=== PATIENT | male | born 1955 | race Caucasian/White ===

== ENCOUNTER 2017-06-25 09:59 | Day surgery (SDC) | payer OTHER ==
[~2017-06-25] VITALS: Ht 182.9 cm; Wt 110.0 kg
[2017-06-25] MEDS ORDERED: TERA5 PO (10:42)
== END 2017-06-25 14:00 | disposition home or self-care (01) ==
LOC: ORSCSDS 09:59
PROVIDERS: Orthopaedic Surgery
PROC: 0SBC4ZZ Excision of Right Knee Joint, Percutaneous Endoscopic Approach (ICD-10-PCS; principal; 2017-06-25 11:20)
DX: S83.241A Other tear of medial meniscus, current injury, right knee, initial encounter (principal); M70.41 Prepatellar bursitis, right knee; M25.861 Other specified joint disorders, right knee; I10 Essential (primary) hypertension; Z79.899 Other long term (current) drug therapy
CPT/HCPCS: J0171; J0690; J1100; J1885; J2250; J2405; J3010; J7120

== ENCOUNTER → 2020-09-08 | Outpatient (CLI) | payer OTHER ==
[~2020-09-08] MED LIST: ASPI81CH PO; CLOP75 PO; Percocet 5-3251 EACH PO; Simvastatin20 MG PO; TERA5 PO; Zofran Odt4 MG SL
[2020-09-09 15:18] LABS: BASOPHILS ABSOLUTE AUTO 0.03 K/mm3 (0.00-0.23); BASOPHILS PERCENT AUTO 1 % (0-2); EOSINOPHILS ABSOLUTE AUTO 0.05 K/mm3 (0.00-0.68); EOSINOPHILS PERCENT AUTO 1 % (0-6); Hematocrit 46.7 % (37.0-53.0); Hemoglobin 15.7 g/dL (13.5-17.5); IMMATURE GRAN ABSOLUTE AUTO 0.02 K/mm3 (0.00-0.10); IMMATURE GRAN PERCENT AUTO 0 % (0-1); LYMPHOCYTES ABSOLUTE AUTO 2.09 K/mm3 (0.84-5.20); LYMPHOCYTES PERCENT AUTO 33 % (21-46); MONOCYTES ABSOLUTE AUTO 0.59 K/mm3 (0.16-1.47); MONOCYTES PERCENT AUTO 9 % (4-13); Mean Corpuscular HGB Conc 33.6 g/dL (31.5-36.5); Mean Corpuscular Volume 95 fL (80-100); NEUTROPHILS PERCENT AUTO 56 % (41-73); Platelet Count 232 K/mm3 (150-400); RDW Coefficient Variation 12.4 % (11.7-14.2); Red Blood Cell Count 4.91 M/mm3 (4.30-5.90); White Blood Cell Count 6.38 K/mm3 (4.00-11.30)
[2020-09-09 15:47] LABS: Alanine Aminotransfer (ALT/SGP 35 U/L (12-78); Albumin, Blood 4.1 g/dL (3.4-5.0); Albumin/Globulin Ratio 1.2 (0.8-1.8); Alk Phos 105 U/L (50-136); Anion Gap 9 mmol/L (6-16); Aspartate Aminotrans (AST/SGOT 30 U/L (12-37); Bilirubin, Total 0.7 mg/dL (0.1-1.0); Blood Urea Nitrogen 20 mg/dL (8-24); Bun/Creatinine Ratio 17.5 (12.0-20.0); CO2, Blood 24 mmol/L (21-32); Calcium, Blood 9.9 mg/dL (8.5-10.1); Chloride, Blood 106 mmol/L (98-108); Creatinine, Blood 1.14 mg/dL (0.60-1.20); Globulin, Blood 3.5 g/dL (2.2-4.0); Glomerular Filtration Rate >60 (60-); Glucose, Blood 97 mg/dL (70-99); Potassium, Blood 4.2 mmol/L (3.5-5.5); Sodium, Blood 139 mmol/L (136-145); Total Protein, Blood 7.6 g/dL (6.4-8.2)
== END | disposition home or self-care (01) ==
LOC: LAB SHORT 16:40
PROVIDERS: Physician Assistant
DX: R60.0 Localized edema (principal)
CPT/HCPCS: 80053; 83880; 85025

== ENCOUNTER 2021-02-23 15:19 | Emergency (ER) | payer OTHER ==
[~2021-02-23] VITALS: Ht 182.9 cm; Wt 117.9 kg
[2021-02-23] MEDS ORDERED: MELO7.5 PO (15:34)
[2021-02-23] MEDS ORDERED: Prinivil10 MG PO (15:34)
[2021-02-23] MEDS ORDERED: TERA5 PO (15:34)
[2021-02-23 16:00] LABS: BASOPHILS ABSOLUTE AUTO 0.01 K/mm3 (0.00-0.23); BASOPHILS PERCENT AUTO 0 % (0-2); EOSINOPHILS ABSOLUTE AUTO 0.03 K/mm3 (0.00-0.68); EOSINOPHILS PERCENT AUTO 1 % (0-6); Hematocrit 44.4 % (37.0-53.0); IMMATURE GRAN ABSOLUTE AUTO 0.02 K/mm3 (0.00-0.10); IMMATURE GRAN PERCENT AUTO 0 % (0-1); LYMPHOCYTES ABSOLUTE AUTO 1.59 K/mm3 (0.84-5.20); LYMPHOCYTES PERCENT AUTO 27 % (21-46); MONOCYTES ABSOLUTE AUTO 0.44 K/mm3 (0.16-1.47); MONOCYTES PERCENT AUTO 7 % (4-13); Mean Corpuscular HGB Conc 33.8 g/dL (31.5-36.5); Mean Corpuscular Volume 95 fL (80-100); Mean Platelet Volume 9.5 fL (9.1-12.4); NEUTROPHILS ABSOLUTE AUTO 3.86 K/mm3 (1.96-9.15); NEUTROPHILS PERCENT AUTO 65 % (41-73); Platelet Count 196 K/mm3 (150-400); RDW Coefficient Variation 12.1 % (11.7-14.2); RDW Standard Deviation 42.3 fL (35.1-46.3); Red Blood Cell Count 4.69 M/mm3 (4.30-5.90); White Blood Cell Count 5.95 K/mm3 (4.00-11.30)
[2021-02-23 16:05] LABS: Source, Urine Clean Catch
[2021-02-23 16:15] LABS: International Normalized Ratio 0.97; Prothrombin Time Results 10.2 Sec (9.7-11.5)
[2021-02-23 16:15] LABS: Appearance, Urine Clear (Clear); Bilirubin, Urine Neg (Neg); Blood, Urine Neg (Neg); Color, Urine Yellow (P-Yellow); Glucose Qualitative, Urine Neg (Neg); Ketones, Urine Neg (Neg); Leukocyte Esterase, Urine Neg (Neg); Nitrite, Urine Neg (Neg); Protein, Urine 1+ (Neg); Urobilinogen, Urine 1+ (Normal)
[2021-02-23 16:22] LABS: Alanine Aminotransfer (ALT/SGP 65 U/L (12-78); Albumin, Blood 3.9 g/dL (3.4-5.0); Albumin/Globulin Ratio 1.1 (0.8-1.8); Alk Phos 82 U/L (50-136); Anion Gap 5 mmol/L (6-16); Aspartate Aminotrans (AST/SGOT 43 U/L (12-37); Blood Urea Nitrogen 18 mg/dL (8-24); CO2, Blood 27 mmol/L (21-32); Calcium, Blood 9.6 mg/dL (8.5-10.1); Chloride, Blood 107 mmol/L (98-108); Creatinine, Blood 1.06 mg/dL (0.60-1.20); Globulin, Blood 3.4 g/dL (2.2-4.0); Glomerular Filtration Rate >60 (60-); Glucose, Blood 116 mg/dL (70-99); Magnesium, Blood 2.1 mg/dL (1.6-2.4); Potassium, Blood 4.2 mmol/L (3.5-5.5); Sodium, Blood 139 mmol/L (136-145); Total Protein, Blood 7.3 g/dL (6.4-8.2); Troponin I <0.015 ng/mL (0.000-0.040)
[2021-02-23] MEDS ORDERED: ONDA4ODT MM (17:18)
[2021-02-24] MEDS ORDERED: Mobic15 MG PO (10:53)
[2021-02-24] MEDS ORDERED: LISI20 PO (10:53)
== END 2021-02-23 17:57 | disposition home or self-care (01) ==
LOC: ER 15:19
PROVIDERS: Emergency Medicine
DX: R55 Syncope and collapse (principal); E86.0 Dehydration; R11.2 Nausea with vomiting, unspecified; I10 Essential (primary) hypertension; Z86.73 Personal history of transient ischemic attack (TIA), and cerebral infarction without residual deficits; Z79.82 Long term (current) use of aspirin; Z79.899 Other long term (current) drug therapy; Z87.891 Personal history of nicotine dependence
CPT/HCPCS: 36415; 70450; 71045; 80053; 83605; 83690; 83735; 84145; 84484; 85025; 85610; 93005; 93010; 99285-25; J7030

== ENCOUNTER 2021-02-24 09:41 | Inpatient (IN) | payer OTHER, MEDICARE ==
[~2021-02-24] VITALS: Ht 182.9 cm; Wt 117.9 kg
[~2021-02-24 09:41] MED LIST changes: -ASPI81CH PO; +Aspir 8181 MG PO; +MELO7.5 PO; +ONDA4ODT MM; +Prinivil10 MG PO
[2021-02-24 10:06] LABS: BASOPHILS ABSOLUTE AUTO 0.01 K/mm3 (0.00-0.23); BASOPHILS PERCENT AUTO 0 % (0-2); EOSINOPHILS ABSOLUTE AUTO 0.02 K/mm3 (0.00-0.68); EOSINOPHILS PERCENT AUTO 0 % (0-6); Hemoglobin 15.2 g/dL (13.5-17.5); IMMATURE GRAN ABSOLUTE AUTO 0.02 K/mm3 (0.00-0.10); IMMATURE GRAN PERCENT AUTO 0 % (0-1); LYMPHOCYTES ABSOLUTE AUTO 1.77 K/mm3 (0.84-5.20); LYMPHOCYTES PERCENT AUTO 32 % (21-46); MONOCYTES ABSOLUTE AUTO 0.36 K/mm3 (0.16-1.47); MONOCYTES PERCENT AUTO 6 % (4-13); Mean Corpuscular HGB 32.3 pg (26.0-34.0); Mean Corpuscular HGB Conc 34.5 g/dL (31.5-36.5); Mean Corpuscular Volume 93 fL (80-100); Mean Platelet Volume 9.4 fL (9.1-12.4); NEUTROPHILS ABSOLUTE AUTO 3.43 K/mm3 (1.96-9.15); NEUTROPHILS PERCENT AUTO 61 % (41-73); Platelet Count 189 K/mm3 (150-400); RDW Coefficient Variation 12.1 % (11.7-14.2); RDW Standard Deviation 41.9 fL (35.1-46.3); Red Blood Cell Count 4.71 M/mm3 (4.30-5.90); White Blood Cell Count 5.61 K/mm3 (4.00-11.30)
[2021-02-24 10:27] LABS: Alanine Aminotransfer (ALT/SGP 78 U/L (12-78); Albumin, Blood 3.9 g/dL (3.4-5.0); Albumin/Globulin Ratio 1.1 (0.8-1.8); Alk Phos 82 U/L (50-136); Anion Gap 9 mmol/L (6-16); Aspartate Aminotrans (AST/SGOT 48 U/L (12-37); Bilirubin, Total 1.5 mg/dL (0.1-1.0); Blood Urea Nitrogen 15 mg/dL (8-24); CO2, Blood 25 mmol/L (21-32); Calcium, Blood 9.5 mg/dL (8.5-10.1); Chloride, Blood 107 mmol/L (98-108); Creatinine, Blood 1.07 mg/dL (0.60-1.20); Globulin, Blood 3.5 g/dL (2.2-4.0); Glomerular Filtration Rate >60 (60-); Glucose, Blood 143 mg/dL (70-99); Potassium, Blood 3.6 mmol/L (3.5-5.5); Sodium, Blood 141 mmol/L (136-145); Total Protein, Blood 7.4 g/dL (6.4-8.2)
[2021-02-24 10:39] LABS: International Normalized Ratio 0.97; Prothrombin Time Results 10.2 Sec (9.7-11.5)
[2021-02-24] MEDS ORDERED: LISI20 PO (10:53)
[2021-02-24] MEDS ORDERED: Mobic15 MG PO (10:53)
[2021-02-24 11:30] LABS: Base Excess Venous 0.5 mmol/L; Bicarbonate Venous 24.3 mmol/L (24.0-30.0); PCO2 Venous 45.9 mmHg (38-42); PO2 Venous 78.6 mmHg (38-42); pH Blood Venous 7.36 (7.34-7.37)
[2021-02-24 12:33] LABS: Source, Urine Clean Catch
[2021-02-24 12:35] LABS: Appearance, Urine Hazy (Clear); Bilirubin, Urine Neg (Neg); Blood, Urine Neg (Neg); Color, Urine Amber (P-Yellow); Glucose Qualitative, Urine Neg (Neg); Ketones, Urine 2+ (Neg); Leukocyte Esterase, Urine Neg (Neg); Nitrite, Urine Neg (Neg); Protein, Urine 1+ (Neg); Urobilinogen, Urine NORM (Normal)
[2021-02-24 12:39] LABS: Red Blood Cells, Urine 0-2 /hpf (0-2); White Blood Cells, Urine 0-2 /hpf (0-5)
[2021-02-24 12:40] LABS: Amorphous Light (0-Heavy); Bacteria Rare /hpf; Granular Casts 0-2 /lpf (0); Hyaline Casts 0-2 /lpf (0-2); Mucus Heavy (0-Heavy); Squamous Epithelial Cells Few /hpf (Few)
[2021-02-24 12:53] LABS: U Amphetamine Screen Not Detected; U Barbituate Screen Not Detected; U Benzodiazapine Screen Not Detected; U Buprenorphine Screen Not Detected; U Cannabinoids Screen Not Detected; U Cocaine Screen Not Detected; U Methadone Screen Not Detected; U Methamphetamine Screen DETECTED; U Opiates Screen Not Detected; U Oxycodone Screen Not Detected; U Phencyclidine Screen Not Detected; U Propoxyphene Screen Not Detected
[2021-02-24 13:08] LABS: Influenza A, PCR NEGATIVE (NEGATIVE); Influenza B, PCR NEGATIVE (NEGATIVE); Resp Syncytial Virus, PCR NEGATIVE (NEGATIVE); SARS-Cov-2 (COVID-19) PCR, MMC NEGATIVE (NEGATIVE)
[2021-02-24 16:08] LABS: CHOL/HDL RATIO 3.4; Cholesterol 227 mg/dL (50-200); HDL Cholesterol 67 mg/dL (>39); LDL/HDL RATIO 2.2; Low Density Lipoprotein Chol 144 mg/dL (0-110); Triglycerides 78 mg/dL (30-160); Very Low Density Lipoprot Chol 15 mg/dL (6-32)
--- NOTE | 2021-02-24 19:35 | NUR ---
ADMISSION NOTE PT BROUGHT TO 309 FROM ED FOR R SIDED WEAKNESS AND PROBABLE STROKE. PT HAS HISTORY OF BPH AND HAS DIFFICULTY URINATING. DID NOT TAKE HIS TERAZOSIN TODAY FOR THIS. PT HAS SEVERE RIGHT SIDED DEFICITS AND HAS GARBLED SPEECH THAT MAKES HIM DIFFICULT TO UNDERSTAND. PT SEEMS TO BE ONLY MILDLY CONFUSED, AND THIS IS MOSTLY WHEN HE WAKES FROM SLEEP AND HAS TO URINATE. HE DOES FORGET HIS LIMITATIONS DURING THIS TIME. PT IS SLEEPY, BUT ROUSABLE. HE HAS SOME SCRATCHES ON HIS R FOOT AND REDNESS FROM TELE PATCHES ON HIS ABD. HE HAS AN IV IN HIS R AC AND R HAND. FLUIDS RUNNING. R SIDED FACIAL DROOP AND UNABLE TO PUSH OR PULL WITH R FOOT.
--- NOTE | 2021-02-24 22:47 | NUR ---
AWAKENED, WEAK BUT DETERMINED TO TRY TO GET OUT OF BED. NURSE AT BEDSIDE ASKED WHAT PT NEEDED, GARBLED NEEDED TO "PEE". ASSISTED WITH URINAL, INSTRUCTED TO REMAIN IN BED. NEURO CHECK DONE. RIGHT SIDE REMAINS WEAKER THAN LEFT. SEE NEURO CHECK DOCUMENTATION FOR DETAILS. BED ALARM ON. CALL LIGHT IN REACH. SOON PT APPEARED TO GO BACK TO SLEEP. WILL CONTINUE TO MONITOR
--- NOTE | 2021-02-25 00:59 | NUR ---
A FEW ATTEMPTS TO VOID IN URINAL, GARBLED SPEECH NEEDING TO VOID. STRAIGHT CATHED WITH COUDET CATH - STERILE TECHNIQUE. 600 CC CLEAR, DARK YUSEF URINE RETURNS. CALL LIGHT IN REACH
--- NOTE | 2021-02-25 01:18 | NUR ---
AFTER PT WAS STRAIGHT CATHED, BEHAVIOR BECAME LESS ANXIOUS, MORE COMPLIANT TO REDIRECTION AND DID NOT TRY TO GET OUT OF BED WITHOUT STAFF AROUND. RESTRAINT WAS NOT APPLIED AND WAS DC'D WAS NOT DEEMED NECESSARY. CALL LIGHT IN REACH. WILL CONTINUE TO MONITOR
[2021-02-25 07:03] LABS: BASOPHILS ABSOLUTE AUTO 0.02 K/mm3 (0.00-0.23); BASOPHILS PERCENT AUTO 0 % (0-2); EOSINOPHILS ABSOLUTE AUTO 0.05 K/mm3 (0.00-0.68); EOSINOPHILS PERCENT AUTO 1 % (0-6); Hematocrit 42.5 % (37.0-53.0); Hemoglobin 14.5 g/dL (13.5-17.5); IMMATURE GRAN ABSOLUTE AUTO 0.01 K/mm3 (0.00-0.10); IMMATURE GRAN PERCENT AUTO 0 % (0-1); LYMPHOCYTES PERCENT AUTO 15 % (21-46); MONOCYTES ABSOLUTE AUTO 0.67 K/mm3 (0.16-1.47); MONOCYTES PERCENT AUTO 9 % (4-13); Mean Corpuscular HGB 31.9 pg (26.0-34.0); Mean Corpuscular HGB Conc 34.1 g/dL (31.5-36.5); Mean Corpuscular Volume 93 fL (80-100); Mean Platelet Volume 9.2 fL (9.1-12.4); NEUTROPHILS PERCENT AUTO 75 % (41-73); Platelet Count 185 K/mm3 (150-400); RDW Coefficient Variation 12.2 % (11.7-14.2); RDW Standard Deviation 42.2 fL (35.1-46.3); Red Blood Cell Count 4.55 M/mm3 (4.30-5.90); White Blood Cell Count 7.25 K/mm3 (4.00-11.30)
[2021-02-25 07:44] LABS: Anion Gap 7 mmol/L (6-16); Blood Urea Nitrogen 16 mg/dL (8-24); Bun/Creatinine Ratio 15.2 (12.0-20.0); CO2, Blood 28 mmol/L (21-32); Chloride, Blood 106 mmol/L (98-108); Creatinine, Blood 1.05 mg/dL (0.60-1.20); Glomerular Filtration Rate >60 (60-); Glucose, Blood 99 mg/dL (70-99); Potassium, Blood 3.8 mmol/L (3.5-5.5); Sodium, Blood 141 mmol/L (136-145)
--- NOTE | 2021-02-25 17:52 | NUR ---
SHIFT SUMMARY PATIENT IS ALERT AND ORIENTED X3, PLEASANT AND COOPERATIVE WITH CARE. THE PATIENT WORKED WITH THERAPY THIS SHIFT. PATIENT IS ON [facility] SOFT DIET. FEEDER. BLADDER SCANNED ONCE THIS SHIFT. PATIENT HAS BEEN ABLE TO VOID. IMPULSIVE WILL TRY TO GET UP. REDIRECTABLE. BED ALARM ON. CALL LIGHT WITHIN REACH. WILL CONTINUE TO CARE FOR THE PATIENT UNTIL SHIFT REPORT IS GIVEN TO ONCOMING NURSE.
--- NOTE | 2021-02-26 03:51 | NUR ---
SHIFT SUMMARY PT RESTING THROUGHOUT EVENING AND MORNING. SPEECH IS STILL GARBLED, BUT MORE UNDERSTANDABLE. PT STILL RETAINING URINE AND WAS STRAIGHT CATHED EARLIER THIS MORNING, DRAINING 350ML OF URINE. PT CONFUSED UPON WAKING, BUT IS REDIRECTABLE. NO ACUTE CHANGES. CALL LIGHT WITHIN REACH AND WILL CONTINUE TO MONITOR.
--- NOTE | 2021-02-26 16:34 | NUR ---
SHIFT SUMMARY PATIENT IS ALERT AND ORIENTED X3, WITH SOME MILD CONFUSION AT TIMES. PLEASANT AND COOPERATIVE WITH CARE. THE PATIENT WAS BLADDER SCANNED THIS SHIFT 564 PRESENT. STRAIGHT CATHED 400 OUT. PATIENT HAD A BED BATH THIS SHIFT. MEDS GIVEN PER MD ORDERS FOR ANXIETY AND BPH. FLUIDS DC'D. ON TELE. USES URINAL WITH ASSISTANCE. PATIENT ON RA SATTING ABOVE 90% FAMILY IN ROOM CURRENTLY.
--- NOTE | 2021-02-26 19:25 | NUR ---
VOICED BACK PAIN, RESTLESS. RECEIVED TYLENOL AND ATIVAN - SEE MAR FOR DETAILS. SPEECH MORE UNDERSTANDABLE TONIGHT. CALL LIGHT IN REACH
--- NOTE | 2021-02-27 03:57 | NUR ---
SHIFT SUMMARY PT A&O X 3 WHEN AWAKE LAST EVENING. PT A&O X 2 UPON WAKING THIS AM. PT AGITATED AND TRYING TO GET OUT OF BED AND PULL OFF HIS TELE. PT MEDICATED WITH ATIVAN TWICE THIS SHIFT. PT DOES NOT HAVE MUCH URINE OUTPUT. BLADDER SCAN WAS 478. PT WAS STRAIGHT CATHED AND OUTPUT WAS 400. PT HAS BEEN RESTLESS AND ASKS TO GO HOME AND WANTS TO TALK TO HIS . WHEN AWAKE PT WILL USE A URINAL WITH MINIMAL ASSISTANCE. PT HAS BPH, MAKING URINATING DIFFICULT. PLAN IS FOR PT TO FOLLOW UP WITH UROLOGY AND POSSIBLY TRANSFER TO A SNF.
--- NOTE | 2021-02-27 17:22 | NUR ---
SHIFT SUMMARY PT IS A/O X2-3. PT REQUESTED TO GET OUT OF BED WITH THERAPY AND SAT IN THE RECLINER MOST OF THE SHIFT. PHYSICAL THERAPY WORKED WITH HIM AND STATED THAT HE WOULD PROBABLY HAVE TO BE PUT BACK TO BED WITH A LIFT. PT WAS BLADDER SCANNED THROUGHOUT SHIFT TO MONITOR FOR RETENTION, BUT STRAIGHT CATH WAS NOT NEEDED. PT HAS CHAIR ALARM UNDER HIM AND HAS HIS CALL LIGHT IN REACH. NO DISTRESS WAS NOTED THIS SHIFT. WILL CONTINUE TO MONITOR PT.
--- NOTE | 2021-02-27 17:34 | NUR ---
PLEASE REFER TO STUDENT NOTE FOR SHIFT SUMMARY.
[2021-02-27 20:28] LABS: U Amphetamine Screen Not Detected; U Barbituate Screen Not Detected; U Benzodiazapine Screen DETECTED; U Buprenorphine Screen Not Detected; U Cannabinoids Screen Not Detected; U Cocaine Screen Not Detected; U Methadone Screen Not Detected; U Methamphetamine Screen Not Detected; U Opiates Screen Not Detected; U Oxycodone Screen Not Detected; U Phencyclidine Screen Not Detected; U Propoxyphene Screen Not Detected
--- NOTE | 2021-02-28 05:21 | NUR ---
PT WAS ALERT, ORIETED TO SELF, PLACE AND SITUATION, NOT TO TIME/DATE. PT CONTINUES WITH MILD EXPRESSIVE APHASIA AND SLURRED SPEECH R SIDE WEAKNESS NOTED AND PT IS NOT ABLE TO BARE WEIGHT. LIFT USED TO GET PT BACK TO BED. PT IS INC. HOWEVER, WAS ABLE TO URINATE WHEN PROMPTED (150 ML'S) WITH 150 RESIDUAL. ABD HARD AND EXTENDED. PT ON BEDREST THIS SHIFT. ALARM ON. STAFF WILL CONT TO MONITOR.
--- NOTE | 2021-02-28 17:05 | NUR ---
PT AOX3 MILD CONFUSION AND SLUREED SPEACH DUE TO STROKE. PT ABLE TO MAKE NEEDS KNOWN AT THIS TIME. PT DOES SEEM TO GET UNCOMFORTABLE IN BED AND SEEMS TO ACT LIKE HE HAS A SHARP PAIN GOING DOWN HIS L LEG. THIS SEEMS TO RESOLVE WHEN PT IS ABLE TO GET UP TO RECLINER. PT WAS TREATED FOR PAIN PER EMAR. NO DISTRESS NOTED AT THIS TIME. PT WILL GET A BIT UNHAPPY WITH FAMILY NOT TAKING HIM HOME. OVER ALL PT HAS BEEN COOPERATING TODAY. WILL CONTINUE TO MONITOR.
--- NOTE | 2021-03-01 05:56 | NUR ---
PATIENT IS A&O3-4, RIGHT SIDED WEAKNESS FROM CVA, STREGNTH IMPROVING PER PATIENT REPORTS. SLURRED SPEECH, ABLE TO COMMUNICATE HIS NEEDS, DIFFICULTY AT TIMES. PATIENT ENDORSED ANXIETY AND REQUESTED PRN LORAZEPAM APPROPIATELY. SLEPT WELL THROUGH THE NIGHT. ABLE TO VOID INTO URINAL, FHO=[phone].
--- NOTE | 2021-03-01 18:24 | NUR ---
DAY SHIFT SUMMARY POST CVA, RT SIDED WEAKNESS, EYE PATCH D/T DOUBLE VISION, BLADDER SCAN Q SHIFT. COOPERATIVE WITH CARE. LIFT IS USED TO MOVE PT FROM BEDSIDE CHAIR TO BED AND BACK. CALL LIGHT WITHIN REACH OF PT ON NON-EFFECTED SIDE. PRESENT AT BEDSIDE DURING VISITING HOURS. NO CHANGES WITH THIS PT THIS SHIFT.
--- NOTE | 2021-03-02 05:43 | NUR ---
PATIENT IS COOPERATIVE WITH STAFF AND CARE PROVIDED. SPEECH REMAINS SLURRED AND DIFFICULT TO UNDERSTAND SO AT TIMES IT CAN BE DIFFICULT TO DETERMINE WHAT THE PATIENT IS WANTING OR NEEDING. HE DOES SEEM TO BE ABLE TO FOLLOW DIRECTIONS. CALLS OUT WHEN HE NEEDS TO VOID. HE DID BECOME A BIT ANXIOUS THIS AM AND I GAVE THE PATIENT A DOSE OF PRN ATIVAN AND THAT SEEMED TO HELP CALM THE PATIENT DOWN. THE PATIENT IS NOW SLEEPING IN BED. CALL LIGHT WITHIN REACH.
--- NOTE | 2021-03-02 17:14 | NUR ---
SUMMARY PT SITTING UP IN BED WATCHING TV, PT HAS BEEN COOPERATIVE WITH CARE, PT DOES NOT CONSISTENTLY USE THE CALL LIGHT, OFTEN CALLS OUT, ESPECIALLY IF HE NEEDS TO USE THE URINAL, PT'S SPOUSE HAS BEEN IN TO VISIT, A STAFF MEMBER FROM [facility] WAS ALSO IN TO INTERVIEW THE PT, SPOUSE WAS PRESENT DURING THE INTERVIEW, PT/OT/ST ALL HAVE WORKED WITH THE PT TODAY, PLAN IS TO GO TO SNF, VSS, WILL CONT TO MONITOR
--- NOTE | 2021-03-03 05:04 | NUR ---
SHIFT SUMMARY BRAYDEN: BRAYDEN IS STILL SONFUSED BUT HE RESPONDS TO COMMANDS. HIS PHYSICIAN ALLERGIST IMMUNOLOGIST, DORSI AND PLANTAR FLEXION WERE STRONG. HE VOIDED IN HIS DIAPERS AND AT TIMES CONFUSINGL ASKS FOR THE URINAL. BLADDER SCAN THIS MORNING WAS LESS THAN 98.
--- NOTE | 2021-03-03 17:39 | NUR ---
SUMMARY PT SITTING UP IN BED EATING DINNER, SPOUSE WAS IN TO VISIT EARLIER, PT WORKED WITH PT/OT TODAY, STILL HAVING DOUBLE VISION, ABLE TO STAND WITH ASSIST, BUT UNSAFE TO WALK PER THE THERAPIST, PT MED PER EMAR FOR PAIN, ABLE TO TAKE PILLS WHOLE IN APPLESAUCE WITH NO PROBLEMS, PT HAS BEEN PLEASANT AND COOPERATIVE WITH CARE, VSS, WILL CONT TO MONITOR
--- NOTE | 2021-03-03 20:02 | NUR ---
ALERT. ANSWERS MOST QUESTIONS APPROPRIATELY. SLIGHTLY SLURRED SPEECH. C/O RIGHT SIDE NUMBNESS. STATES HE THINKS IT'S BETTER. DENIES NUMBNESS TO LEFT SIDE. RESP E/U ON RA. NUMBING PAIN IN RIGHT LEG BETTER PT STATES. MEDICAL SUPERINTENDENT EQUALLY STRONG. LINENS CHANGED. WILL PROVIDE CARE T/O SHIFT. CALL LT IN REACH.
--- NOTE | 2021-03-03 20:26 | NUR ---
PT TOOK MED WHOLE WITH APPLESAUCE WITHOUT DIFFICULTY. HOB RAISED. NO COUGHING OR CHOKING NOTED.
--- NOTE | 2021-03-03 21:04 | NUR ---
PT ABLE TO ROLL FROM SIDE TO SIDE. CURRENTLY LYING ON RIGHT SIDE. CALL LT IN REACH.
--- NOTE | 2021-03-03 22:05 | NUR ---
PT RESTING QUIETLY IN BED, LYING SUPINE. RESP E/U ON RA. EYES CLOSED. 0.5 MG PO ATIVAN GIVEN FOR ANXIETY AND AGITATION. WILL CONTINUE TO PROVIDE CARE. CALL LT IN REACH. BED ALARM ON.
--- NOTE | 2021-03-04 03:47 | NUR ---
SHIFT SUMMARY: ALERT, ANSWERS MOST QUESTIONS APPROPRIATELY. SLURRED SPEECH, ABLE TO STATE NEEDS. ON RA. VSS. TOOK MEDS WHOLE IN APPLESAUCE WITH HOB ELEVATED WITHOUT DIFFICULTY. CONTINUES TO HAVE NUMBNESS TO RIGHT SIDE, STATES IT'S GETTING BETTER. HE HOPES TO BE ABLE TO WALK SOON SO THAT HE CAN GET OUT OF HERE. PRN ATIVAN 0.5 MG PO GIVEN FOR ANXIETY, PT RESTED AFTERWARDS. NO ACUTE CHANGES. WILL CONTINUE TO PROVIDE CARE UNTIL SHIFT REPORT. BED ALARM ON. CALL LT IN REACH.
[2021-03-04 12:18] LABS: BASOPHILS ABSOLUTE AUTO 0.02 K/mm3 (0.00-0.23); BASOPHILS PERCENT AUTO 0 % (0-2); EOSINOPHILS ABSOLUTE AUTO 0.07 K/mm3 (0.00-0.68); EOSINOPHILS PERCENT AUTO 1 % (0-6); Hematocrit 48.1 % (37.0-53.0); IMMATURE GRAN ABSOLUTE AUTO 0.02 K/mm3 (0.00-0.10); IMMATURE GRAN PERCENT AUTO 0 % (0-1); LYMPHOCYTES PERCENT AUTO 25 % (21-46); MONOCYTES ABSOLUTE AUTO 0.57 K/mm3 (0.16-1.47); MONOCYTES PERCENT AUTO 9 % (4-13); Mean Corpuscular HGB 31.4 pg (26.0-34.0); Mean Corpuscular HGB Conc 33.3 g/dL (31.5-36.5); Mean Corpuscular Volume 95 fL (80-100); Mean Platelet Volume 9.2 fL (9.1-12.4); NEUTROPHILS ABSOLUTE AUTO 4.35 K/mm3 (1.96-9.15); NEUTROPHILS PERCENT AUTO 65 % (41-73); Platelet Count 208 K/mm3 (150-400); RDW Coefficient Variation 12.1 % (11.7-14.2); RDW Standard Deviation 42.5 fL (35.1-46.3); Red Blood Cell Count 5.09 M/mm3 (4.30-5.90); White Blood Cell Count 6.73 K/mm3 (4.00-11.30)
[2021-03-04 12:40] LABS: Alanine Aminotransfer (ALT/SGP 87 U/L (12-78); Albumin, Blood 4.1 g/dL (3.4-5.0); Albumin/Globulin Ratio 1.3 (0.8-1.8); Alk Phos 94 U/L (50-136); Anion Gap 6 mmol/L (6-16); Aspartate Aminotrans (AST/SGOT 45 U/L (12-37); Bilirubin, Total 1.1 mg/dL (0.1-1.0); Blood Urea Nitrogen 15 mg/dL (8-24); Bun/Creatinine Ratio 14.2 (12.0-20.0); CO2, Blood 29 mmol/L (21-32); Calcium, Blood 9.6 mg/dL (8.5-10.1); Chloride, Blood 103 mmol/L (98-108); Creatinine, Blood 1.06 mg/dL (0.60-1.20); Globulin, Blood 3.2 g/dL (2.2-4.0); Glomerular Filtration Rate >60 (60-); Glucose, Blood 104 mg/dL (70-99); Potassium, Blood 4.3 mmol/L (3.5-5.5); Sodium, Blood 138 mmol/L (136-145); Total Protein, Blood 7.3 g/dL (6.4-8.2)
--- NOTE | 2021-03-04 16:29 | NUR ---
SHIFT SUMMARY PATIENT IS A/O X3, CAN BECOME CONFUSED AT TIMES. PLEASANT AND COOPERATIVE WITH CARE. THE PATIENT WORKED WITH PHYSICAL THERAPY THIS SHIFT. THE PATIENT HAD A BOWEL MOVEMENT TODAY WITHOUT RECEIVING BOWEL CARE MEDS. PATIENT HAS BEEN VOIDING ON THEIR OWN. PATIENT HAD A BED BATH. PATIENT MEDICATED ONCE WITH PRN ANXIETY MEDS. PATIENT'S SPOUSE CURRENTLY AT BEDSIDE. NO ACUTE CHANGES THIS SHIFT. VSS. BEDALARM SET. CALL LIGHT WITHIN REACH. WILL CONTINUE TO CARE FOR PATIENT UNTIL SHIFT REPORT IS GIVEN TO ONCOMING NURSE.
--- NOTE | 2021-03-05 04:27 | NUR ---
SHIFT SUMMARY: BRAYDEN WAS ANXIOUS, SCREAMING, AGITATED AT THE BEGINNING OF THE SHIFT. DR. MOHR ORDERED SEROWUEL AT BEDTIME. HE WAS ADMINISTERED SEROQUEL AND ATIVAN AND 10 MINUTES LATER BAILEY, THE SURGICAL INSTRUMENT MECHANIC CALLED ME BECAUSE SHE FOUND HIM ON THE FLOOR.HE WAS SUBSEQUENTLY ASSESSED POST FALL, HIS VITAL SIGNS WERE GOOD AND THERE WAS NO SIGNS OF INJURY. HE FELL ASLEEP ABOUT 30 MINUTES LATER PROBABLY AFTER THE RX STARTED TO TAKE EFFECT. HE WOKE UP AT AROUND 0430 AND WAS MANAGEABLY AGITATED.
--- NOTE | 2021-03-05 16:39 | NUR ---
SHIFT SUMMARY PT AxOx2-3. PT DROWSY THIS AM AND EARLY AFTERNOON. PT HAS SLURRED AND GARBLED SPEECH. PT SOMETIMES STARES AND SPACES OUT WHEN STAFF IS TALKING TO HIM OR RESPONDS WITH FEW WORDS. IN ROOM TODAY FOR UPDATE. LIFT PATIENT D/T R SIDED WEAKNESS. CURRENT PLAN LOOKING FOR PLACEMENT. DR ACOSTA ABD US FOR TOMORROW AM. PT WILL BE NPO AFTER MIDNIGHT.PT CURRENTLY RESTING IN BED WITH CALL LIGHT IN REACH. DENIES ANY NEEDS AT THIS TIME.
--- NOTE | 2021-03-06 04:59 | NUR ---
SHIFT SUMMARY NO ACUTE CHANGES THIS SHIFT. SLEPT SOUNDLY T/O NIGHT. AOX3-SELF, PLACE, SITUATION. FORGETFUL @TIMES. ABLE TO FOLLOW DIRECTIONS. VSS. DENIES PAIN, N/V OR SOB. REPORTS R HAND CLINICAL APPEALS RN WEAKER THEN LEFT. GARBLED SPEECH. HAS BEEN NPO SINCE MIDNIGHT FOR ULTRASOUND THIS AM. INCONT/CONT OF URINE, CHANGED PRN. CALL LIGHT & BED ALARM IN PLACE. WCTM.
--- NOTE | 2021-03-06 18:31 | NUR ---
SHIFT SUMMARY PATIENT IS ALERT AND ORIENTED X4, PLEASANT AND COOPERATIVE WITH CARE. THE PATIENT WORKED WITH THERAPY THIS SHIFT. THE PATIENT HAD AN ULTRASOUND DONE PATIENT WILL BE NPO AFTER 0200 FOR FURTHER TESTING TOMORROW. PATIENT RECEIVED ONE DOSE OF ROCEPHIN THIS SHIFT. PATIENT HAS BEEN VOIDING WITHOUT ISSUE. BED IN LOWEST POSITION. CALL LIGHT WITHIN REACH. WILL CONTINUE TO CARE FOR THE PATIENT UNTIL SHIFT REPORT IS GIVEN TO ONCOMING NURSE.
[2021-03-06 22:57] LABS: Influenza A, PCR NEGATIVE (NEGATIVE); Influenza B, PCR NEGATIVE (NEGATIVE); Resp Syncytial Virus, PCR NEGATIVE (NEGATIVE); SARS-Cov-2 (COVID-19) PCR, MMC NEGATIVE (NEGATIVE)
--- NOTE | 2021-03-07 03:11 | NUR ---
SHIFT SUMMARY A&OX4, SLURRED SPEECH MAKES IT DIFFICULT TO UNDERSTAND. CAUSES FRUSTRATION FOR THE PATIENT. ONGOING RIGHT SIDED WEAKNESS. USES URINAL INDEPENDENTLY. LCTA. NO ADVENTITIOUS HEART SOUNDS. COVID SWAB SENT IN ANTICIAPTION OF HEPATOBILIARY STUDY. NO ACUTE CHANGES OVERNIGHT. WCTM.
[2021-03-07 05:27] LABS: BASOPHILS ABSOLUTE AUTO 0.03 K/mm3 (0.00-0.23); BASOPHILS PERCENT AUTO 0 % (0-2); EOSINOPHILS PERCENT AUTO 1 % (0-6); Hematocrit 43.8 % (37.0-53.0); Hemoglobin 14.9 g/dL (13.5-17.5); IMMATURE GRAN ABSOLUTE AUTO 0.02 K/mm3 (0.00-0.10); IMMATURE GRAN PERCENT AUTO 0 % (0-1); LYMPHOCYTES ABSOLUTE AUTO 2.41 K/mm3 (0.84-5.20); LYMPHOCYTES PERCENT AUTO 32 % (21-46); MONOCYTES PERCENT AUTO 9 % (4-13); Mean Corpuscular HGB 32.4 pg (26.0-34.0); Mean Corpuscular Volume 95 fL (80-100); Mean Platelet Volume 9.5 fL (9.1-12.4); NEUTROPHILS ABSOLUTE AUTO 4.25 K/mm3 (1.96-9.15); NEUTROPHILS PERCENT AUTO 57 % (41-73); Platelet Count 224 K/mm3 (150-400); RDW Coefficient Variation 12.2 % (11.7-14.2); White Blood Cell Count 7.51 K/mm3 (4.00-11.30)
[2021-03-07 06:12] LABS: Alanine Aminotransfer (ALT/SGP 62 U/L (12-78); Albumin, Blood 3.8 g/dL (3.4-5.0); Albumin/Globulin Ratio 1.2 (0.8-1.8); Alk Phos 98 U/L (50-136); Anion Gap 8 mmol/L (6-16); Aspartate Aminotrans (AST/SGOT 31 U/L (12-37); Bilirubin, Total 1.1 mg/dL (0.1-1.0); Blood Urea Nitrogen 16 mg/dL (8-24); Bun/Creatinine Ratio 14.8 (12.0-20.0); CO2, Blood 25 mmol/L (21-32); Calcium, Blood 9.3 mg/dL (8.5-10.1); Chloride, Blood 106 mmol/L (98-108); Creatinine, Blood 1.08 mg/dL (0.60-1.20); Globulin, Blood 3.1 g/dL (2.2-4.0); Glomerular Filtration Rate >60 (60-); Glucose, Blood 100 mg/dL (70-99); Potassium, Blood 4.2 mmol/L (3.5-5.5); Sodium, Blood 139 mmol/L (136-145); Total Protein, Blood 6.9 g/dL (6.4-8.2)
--- NOTE | 2021-03-07 18:46 | NUR ---
SHIFT SUMMARY PATIENT IS ALERT AND ORIENTED X4, PLEASANT AND COOPERATIVE WITH CARE. THE PATIENT WENT FOR A HIATA STUDY THIS AM. TOLERATED WELL. PATIENT WORKED PHYSICAL, OCCUPATIONAL, AND SPEECH THERAPY THIS SHIFT. PATIENT WAS ABLE TO PIVOT TO THE CHAIR WITH DENISHA. PATIENT RECEIVED DINNER THIS EVENING. WILL BE NPO TONIGHT AT 2400 FOR PROCEDURE POSSIBLY TOMORROW. PATIENT IS CURRENTLY IN BED WATCHING TV. CALL LIGHT AND URINAL WITHIN REACH. BED ALARM ON.
--- NOTE | 2021-03-08 06:31 | NUR ---
SHIFT SUMMARY: A&O2-3 IMPULSIVE AT TIMES, SLURRED SPPECH, BUT MUSH IMPROVED SINCE PREVIOUS SHIFT. REMAINS WITH RIGHT SIDED WEAKNESS, USE OF URINAL INDEPENDENTLY. PATIENT HAS BEEN NPO SINCE MIDNIGHT IN ANTICIPATION OF PROCEDURE TODAY. SLEPT WELL THROUGH THE NIGHT.
--- NOTE | 2021-03-08 18:21 | NUR ---
PT AAOX3, ABLE TO MAKE NEEDS KNOWN. ATE 100% MEALS WITH SUPERVISION. COMPLIANT WITH MEDICATIN REGIMEN. STAFF ASSISTED WITH ADL'S NEEDED. CALL LIGHT IN REACH. BED IN LOWEST POSITION.
--- NOTE | 2021-03-09 04:25 | NUR ---
SHIFT SUMMARY: A&OX3, ABLE TO MAKE NEEEDS KNOWN, REMAINS WITH SLURRED SPEECH. USE OF URINAL. ENCOURAGED HYDRATION. PER CHART NO BM X 5 DAYS. EDUCATED PATIENT ON SUPPOSITORY, HE STATED HE HAD A BM 2 DAYS AGO AND REFUSED SUPPOSITORY. PRN COLACE AND MIRALAX GIVEN. RIGHT SIDED WEAKNESS REMAINS. NPO SINCE MIDNIGHT PER ORDER.
[2021-03-09 05:09] LABS: BASOPHILS ABSOLUTE AUTO 0.04 K/mm3 (0.00-0.23); BASOPHILS PERCENT AUTO 1 % (0-2); EOSINOPHILS ABSOLUTE AUTO 0.14 K/mm3 (0.00-0.68); EOSINOPHILS PERCENT AUTO 2 % (0-6); Hematocrit 46.1 % (37.0-53.0); Hemoglobin 15.7 g/dL (13.5-17.5); IMMATURE GRAN ABSOLUTE AUTO 0.01 K/mm3 (0.00-0.10); IMMATURE GRAN PERCENT AUTO 0 % (0-1); LYMPHOCYTES PERCENT AUTO 19 % (21-46); MONOCYTES ABSOLUTE AUTO 0.65 K/mm3 (0.16-1.47); MONOCYTES PERCENT AUTO 9 % (4-13); Mean Corpuscular HGB 32.6 pg (26.0-34.0); Mean Corpuscular HGB Conc 34.1 g/dL (31.5-36.5); Mean Corpuscular Volume 96 fL (80-100); Mean Platelet Volume 9.4 fL (9.1-12.4); NEUTROPHILS ABSOLUTE AUTO 4.76 K/mm3 (1.96-9.15); NEUTROPHILS PERCENT AUTO 69 % (41-73); Platelet Count 220 K/mm3 (150-400); RDW Standard Deviation 42.1 fL (35.1-46.3); Red Blood Cell Count 4.82 M/mm3 (4.30-5.90)
[2021-03-09 06:53] LABS: Alanine Aminotransfer (ALT/SGP 57 U/L (12-78); Albumin/Globulin Ratio 1.2 (0.8-1.8); Alk Phos 96 U/L (50-136); Anion Gap 9 mmol/L (6-16); Aspartate Aminotrans (AST/SGOT 30 U/L (12-37); Bilirubin, Total 1.4 mg/dL (0.1-1.0); Blood Urea Nitrogen 22 mg/dL (8-24); Bun/Creatinine Ratio 19.5 (12.0-20.0); CO2, Blood 26 mmol/L (21-32); Calcium, Blood 9.5 mg/dL (8.5-10.1); Chloride, Blood 103 mmol/L (98-108); Creatinine, Blood 1.13 mg/dL (0.60-1.20); Globulin, Blood 3.2 g/dL (2.2-4.0); Glomerular Filtration Rate >60 (60-); Glucose, Blood 111 mg/dL (70-99); Sodium, Blood 138 mmol/L (136-145); Total Protein, Blood 7.2 g/dL (6.4-8.2)
[2021-03-09] MEDS ORDERED: PRAZ5 PO (15:18)
[2021-03-09] MEDS ORDERED: ACET325 PO (15:19)
[2021-03-09] MEDS ORDERED: ATOR80 PO (15:19)
[2021-03-09] MEDS ORDERED: AMLO5 PO (15:19)
[2021-03-09] MEDS ORDERED: CLOP75 PO (15:20)
[2021-03-09] MEDS ORDERED: BISA10S PR (15:20)
[2021-03-09] MEDS ORDERED: PANT40 PO (15:20)
[2021-03-09] MEDS ORDERED: TAMS.4ER PO (15:21)
[2021-03-09] MEDS ORDERED: MIRALAX17 G3 PO (15:21)
[2021-03-09] MEDS ORDERED: QUET25 PO (15:21)
[2021-03-09 16:31] LABS: Influenza A, PCR NEGATIVE (NEGATIVE); Influenza B, PCR NEGATIVE (NEGATIVE); Resp Syncytial Virus, PCR NEGATIVE (NEGATIVE); SARS-Cov-2 (COVID-19) PCR, MMC NEGATIVE (NEGATIVE)
--- NOTE | 2021-03-09 19:30 | NUR ---
PT AAOX3, ABLE TO MAKE NEEDS KNOWN, SLURRED SPEECH NOTED. CMPLIANT TO MEDICATION REGIMEN. PT CONTINUES ON RA NO DISTRESS NOTED. SAFETY PRECAUTIONS MAINTAINED WITH BED IN LOWEST POSITION. CALL LIGHT IN REACH. PT D/C TO FACILITY, LEFT IN STABLE CONDITION VIA WHEELCHAIR. ACCOMPANIED BY ATTENDANT X 1.
== END 2021-03-09 18:12 | DRG 65 ==
LOC: ER 09:41 → MEDS 15:10 → ER 15:10 → MEDS 19:34
PROVIDERS: Emergency Medicine; Family Medicine; Internal Medicine; Surgery; ADMIT Internal Medicine
DX: I63.9 Cerebral infarction, unspecified (principal); Q25.43 Congenital aneurysm of aorta; K80.00 Calculus of gallbladder with acute cholecystitis without obstruction; G81.91 Hemiplegia, unspecified affecting right dominant side; F15.10 Other stimulant abuse, uncomplicated; N40.0 Benign prostatic hyperplasia without lower urinary tract symptoms; I10 Essential (primary) hypertension; Z20.822 Contact with and (suspected) exposure to COVID-19; I71.2 Thoracic aortic aneurysm, without rupture; I69.398 Other sequelae of cerebral infarction; Z98.890 Other specified postprocedural states; Z87.891 Personal history of nicotine dependence; Z79.82 Long term (current) use of aspirin; Z79.899 Other long term (current) drug therapy; N28.89 Other specified disorders of kidney and ureter; R47.01 Aphasia; R47.81 Slurred speech; E66.9 Obesity, unspecified; Z68.35 Body mass index [BMI] 35.0-35.9, adult
CPT/HCPCS: 0241U; 36415; 51701; 70450; 70496; 70498; 70551; 71045; 71275; 74175; 74177; 76705; 78226; 80048; 80053; 80061; 81001; 82550; 82803; 83690; 83880; 84145; 84484; 85025; 85379; 85610; 92507; 92523; 92526; 92610; 93005; 93010; 93306; 94760; 96374; 96375; 97110; 97112; 97162; 97166; 97530; 97530-CQ; 97535; 99285-25; A9270; A9537; G0480; J0696; J1650; J2310; J2405; J2550; J7030; Q9967

== ENCOUNTER 2021-08-30 00:08 | Inpatient (IN) | payer MEDICARE, OTHER ==
[~2021-08-30] VITALS: Ht 182.9 cm; Wt 123.5 kg
[~2021-08-30 00:08] MED LIST changes: +ACET325 PO; +AMLO5 PO; +ATOR80 PO; +BISA10S PR; +LISI20 PO; +MIRALAX17 G3 PO; +Mobic15 MG PO; +PANT40 PO; +PRAZ5 PO; +QUET25 PO; +TAMS.4ER PO
[2021-08-30 01:05] LABS: Source, Urine Clean Catch
[2021-08-30 01:09] LABS: BASOPHILS ABSOLUTE AUTO 0.02 K/mm3 (0.00-0.23); BASOPHILS PERCENT AUTO 0 % (0-2); EOSINOPHILS PERCENT AUTO 0 % (0-6); Hematocrit 42.3 % (37.0-53.0); Hemoglobin 13.8 g/dL (13.5-17.5); IMMATURE GRAN ABSOLUTE AUTO 0.04 K/mm3 (0.00-0.10); IMMATURE GRAN PERCENT AUTO 0 % (0-1); LYMPHOCYTES ABSOLUTE AUTO 0.39 K/mm3 (0.84-5.20); LYMPHOCYTES PERCENT AUTO 4 % (21-46); MONOCYTES ABSOLUTE AUTO 1.03 K/mm3 (0.16-1.47); MONOCYTES PERCENT AUTO 9 % (4-13); Mean Corpuscular HGB 30.7 pg (26.0-34.0); Mean Corpuscular HGB Conc 32.6 g/dL (31.5-36.5); Mean Corpuscular Volume 94 fL (80-100); Mean Platelet Volume 9.3 fL (9.1-12.4); NEUTROPHILS ABSOLUTE AUTO 9.54 K/mm3 (1.96-9.15); NEUTROPHILS PERCENT AUTO 87 % (41-73); Platelet Count 174 K/mm3 (150-400); RDW Coefficient Variation 12.7 % (11.7-14.2); RDW Standard Deviation 43.8 fL (35.1-46.3); White Blood Cell Count 11.02 K/mm3 (4.00-11.30)
[2021-08-30 01:14] LABS: Blood, Urine 2+ (Neg); Color, Urine Amber (P-Yellow); Glucose Qualitative, Urine Neg (Neg); Ketones, Urine Neg (Neg); Leukocyte Esterase, Urine 1+ (Neg); Nitrite, Urine Neg (Neg); Protein, Urine 2+ (Neg); Urobilinogen, Urine 3+ (Normal)
[2021-08-30 01:20] LABS: Appearance, Urine Hazy (Clear); Bilirubin, Urine 2+ (Neg)
[2021-08-30 01:21] LABS: Albumin, Blood 3.5 g/dL (3.4-5.0); Albumin/Globulin Ratio 0.9 (0.8-1.8); Bilirubin, Total 3.8 mg/dL (0.1-1.0); Calcium, Blood 9.2 mg/dL (8.5-10.1); Creatinine, Blood 1.06 mg/dL (0.60-1.20); Globulin, Blood 3.7 g/dL (2.2-4.0); Potassium, Blood 4.3 mmol/L (3.5-5.5); Total Protein, Blood 7.2 g/dL (6.4-8.2)
[2021-08-30 01:23] LABS: Hyaline Casts 0-2 /lpf (0-2)
[2021-08-30 01:24] LABS: Bacteria Many /hpf; Mucus Light (0-Heavy); Red Blood Cells, Urine 0-2 /hpf (0-2); Squamous Epithelial Cells Rare /hpf (Few); White Blood Cells, Urine 0-2 /hpf (0-5)
[2021-08-30 03:46] LABS: International Normalized Ratio 0.97; Prothrombin Time Results 10.2 Sec (9.7-11.5)
[2021-08-30] MEDS ORDERED: Voltaren100 GM TOP (15:49)
[2021-08-30] MEDS ORDERED: DOCUZEN 8.6-501 EACH PO (16:00)
[2021-08-30] MEDS ORDERED: FINA5 PO (16:00)
[2021-08-30] MEDS ORDERED: SERT50 PO (16:01)
--- NOTE | 2021-08-30 17:22 | NUR ---
SHIFT SUMMARY MR DELGADILLO WAS ADMITTED TO MEDICAL UNIT FROM ER AT 1410HRS. PT ALERT, ORIENTATED TO SELF, MONTH AND YEAR, [facility] 3RD FLOOR, BUT HE DOESN'T UNDERSTAND WHY HE IS HERE IN HOSPITAL. HE LIVES WITH HIS EXWIFE AND LEARNING TECHNOLOGIST - SHE SAID THAT HE HAS BEEN VERY CONFUSED SINCE YESTERDAY, THAT HE HAS BEEN STUTTERING AND REPETATIVE IN HIS WORDS. HE ARRIVED ON 5LNC O2, SOB OE, DEEP BREATH, RESP RATE 20 AT REST, DENIES SOB AT REST. ABDOMEN DISTENDED, TENDER TO PALPATION AND LATER ON PT TOOK TYLENOL FOR ABDOMINAL PAIN. DIAPHURETIC SINCE ARRIVAL. HX CVA - PT WEAK TO BOTH LEGS AND UNDERGOING PT/OT AND SPEACH THERAPY THREE TIMES A WEEK. HE HAS BEEN W/C BOUND, BUT SAID HE CAN TRANSFER TO THE TOILET. HE TRANSFERED TO THE [facility] WITH GAIT BELT AND 2 PERSON ASSIST, NOT STEADY, BUT FOLLOWED INSTRUCTIONS AND HAS GOOD UPPER BODY STRENGTH TO HELP. BED ALARM ON WHEN IN BED. PT HAS DOUBLE VISION ON AND OFF PER AND PROBLEMS WITH HEARING, DOES NOT WEAR HEARING AIDS. R PUPIL LARGER THAN LEFT, BOTH REACTIVE. EQUAL WEIGHT TRAINING INSTRUCTOR STRENGTH AND SHOULDER SHRUGS, SAID WEAKNESS VARIES BETWEEN LEFT AND RIGHT SIDES. PT C/O N&T TO RIGHT ARM AND R LEG.
[2021-08-30] MEDS ORDERED: TRAZ50 PO (18:13)
--- NOTE | 2021-08-30 19:24 | NUR ---
RN ADDENDUM REFERAL TO PALLIATIVE CARE DONE IN PERSON WITH PALLIATIVE CARE RN. ONCOLOGY CLINIC CALLED EARLIER TODAY AT [phone] AND PERSON ANSWERING SUNNY PHONE SAID THAT SHE WOULD PASS THE MESSAGE ON TO DR FAGAN TO SEE PT HERE IN [facility]. EX WANTED TO TALK WITH DR TURNER AND MESSAGE LEFT ON HIS ANSWERING MACHINE AROUND 1745 TODAY.
[2021-08-31 05:16] LABS: BASOPHILS ABSOLUTE AUTO 0.03 K/mm3 (0.00-0.23); BASOPHILS PERCENT AUTO 0 % (0-2); EOSINOPHILS ABSOLUTE AUTO 0.06 K/mm3 (0.00-0.68); EOSINOPHILS PERCENT AUTO 1 % (0-6); Hematocrit 36.8 % (37.0-53.0); IMMATURE GRAN ABSOLUTE AUTO 0.06 K/mm3 (0.00-0.10); IMMATURE GRAN PERCENT AUTO 1 % (0-1); LYMPHOCYTES ABSOLUTE AUTO 1.31 K/mm3 (0.84-5.20); LYMPHOCYTES PERCENT AUTO 12 % (21-46); MONOCYTES ABSOLUTE AUTO 1.14 K/mm3 (0.16-1.47); MONOCYTES PERCENT AUTO 11 % (4-13); Mean Corpuscular HGB 30.9 pg (26.0-34.0); Mean Corpuscular HGB Conc 32.6 g/dL (31.5-36.5); Mean Corpuscular Volume 95 fL (80-100); Mean Platelet Volume 9.7 fL (9.1-12.4); NEUTROPHILS ABSOLUTE AUTO 8.17 K/mm3 (1.96-9.15); NEUTROPHILS PERCENT AUTO 76 % (41-73); Platelet Count 139 K/mm3 (150-400); RDW Coefficient Variation 13.3 % (11.7-14.2); RDW Standard Deviation 46.8 fL (35.1-46.3); Red Blood Cell Count 3.88 M/mm3 (4.30-5.90); White Blood Cell Count 10.77 K/mm3 (4.00-11.30)
--- NOTE | 2021-08-31 05:22 | NUR ---
PT IS ALERT, TALKS WITH SLURRED SPEECH DUE TO PREVIOUS CVA. PT IS NPO AT THIS TIME FOR TEST TODAY. MINIPRESS DOSE HELD THIS SHIFT DUE TO LOW BP R SIDE WEAK.
[2021-08-31 06:02] LABS: Albumin, Blood 2.8 g/dL (3.4-5.0); Albumin/Globulin Ratio 0.8 (0.8-1.8); Bilirubin, Total 4.5 mg/dL (0.1-1.0); Bun/Creatinine Ratio 19.8 (12.0-20.0); Calcium, Blood 8.9 mg/dL (8.5-10.1); Creatinine, Blood 1.01 mg/dL (0.60-1.20); Globulin, Blood 3.4 g/dL (2.2-4.0); Potassium, Blood 3.7 mmol/L (3.5-5.5); Total Protein, Blood 6.2 g/dL (6.4-8.2)
[2021-08-31 06:11] LABS: HIV AB/P24 AG SCREEN Non Reactive (Non Reactive)
--- NOTE | 2021-08-31 16:54 | NUR ---
PT C/O TONGUE PAIN WITH WHITE ON TOP AND SPOTS ON SIDE. CALLED DR TURNER. HE GAVE ORDERS.
--- NOTE | 2021-08-31 18:18 | NUR ---
PT HAD HYDASCAN TODAY. DR ALEXANDER STOPPED BY TODAY, NOTED MAKE PT NPO MIDNITE FOR POSS SURG ON GALLBLADDER TOMORROW. HAS NOT C/O PAIN TODAY. URINE CONTINUES TO BE VERY DARK. PT C/O PAIN TO TONGUE, WHITE SPOTS NOTED ON SIDE AND SOME WHITE ON TOP. DR TURNER ORDERED MEDS. PT NO NEW COMPLAINTS TODAY. BED IN LOW POSITION, CALL LITE IN REACH. CALLS APPROP
--- NOTE | 2021-09-01 04:59 | NUR ---
SHIFT SUMMARY AOX3-SELF, PLACE, SITUATION. FORGETFUL OF DATE. FOLLOWS DIRECTIONS & ANSWERS QUESTIONS APPROPRIATELY. SLOW TO RESPOND GARBLED SPEECH, HX CVA. VSS. REPORTS 4/10 ALLOVER ABD DISCOMFORT, DENIES NEED FOR PAIN MEDICATION. REPORTED NAUSEA @HS & MEDICATED c ZOFRAN, NO FURTHER NAUSEA REPORTED. HYPERACTIVE BT. ABD MOD DISTENDED. REPORTS PAINFUL TONGUE, WHITE SORE/ULCER ON L SIDE TONGUE NOTICED c ASSESSMENT, MEDICATED c SCHEDULED MYCELEX MARY. HAS BEEN NPO SINCE MIDNIGHT FOR POSSIBLE PROCEDURE. DENIES DYSPNEA @REST. SPO2 >90% ON 2L O2, WEARS PRN PER PT. CALL LIGHT & BED ALARM IN PLACE. WILL MONITOR.
[2021-09-01 09:10] LABS: HBSAG SCREEN Negative (Negative); HCV AB 0.1 (0.0-0.9); HEP A AB, IGM Negative (Negative); HEP B CORE AB, IGM Negative (Negative)
--- NOTE | 2021-09-01 11:11 | NUR ---
History, Chart, Medications and Allergies reviewed before start of procedure. PATIENT UNABLE TO AMBULATE S/P CVA 02/2021. RIGHT ARM WEAKER THAN LEFT SOME DIFFICUTLY W/SPEECH AND SWALLOW.
--- NOTE | 2021-09-01 11:25 | NUR ---
09/01/21 1125 Maricruz Gomez PATIENT TAKES DAILY ROCEPHIN 1000MG. TAKEN TODAY AT 0900. NO INTRAOPERATIVE ANTIBIOTICS ORDERED.
--- NOTE | 2021-09-01 17:22 | NUR ---
SHIFT SUMMARY PT A&O, FOLLOWS COMMANDS. SLIGHT DELAY IN RESPONSE. PT DOWN TO OR TODAY FOR LAP MIGUEL. PT WITH LAP SITES X 5, MINIMAL DRAINAGE NOTED. PAIN TOLERABLE DURING SHIFT. NO C/O NAUSEA. PT STARTED BACK ON FULL LIQUID DIET, TOLERATING. WILL CONTINUE TO MONITOR.
--- NOTE | 2021-09-02 04:03 | NUR ---
SHIFT SUMMARY ADMITTED FOR SEPSIS. FULL CODE. FOUND TO HAVE GALLBLADDER ISSUES. LAPCHOLE PERFORMED ON PREVIOUS SHIFT. 4 LPM O2 HERE, RA @ HOME. DR ALEXANDER IS SURGICAL CONSULT. HOPEFUL FOR DC HOME W/HH WHEN ARRANGEMENTS CAN BE MADE. HE IS 2 MAX ASSIST TO BSC. WHEELCHAIR @ BASELINE. RX GIVEN WHOLE W/APPLESAUCE. FULL LIQUID DIET/NECTAR THICK LIQUIDS. HX OF CVA - LEFT SIDED WEAKNESS. MASS FOUND IN KIDNEY TO BE MANAGED OUTPT FOLLOW UP.
[2021-09-02 08:39] LABS: BASOPHILS ABSOLUTE AUTO 0.01 K/mm3 (0.00-0.23); BASOPHILS PERCENT AUTO 0 % (0-2); EOSINOPHILS ABSOLUTE AUTO 0.02 K/mm3 (0.00-0.68); EOSINOPHILS PERCENT AUTO 0 % (0-6); Hematocrit 37.2 % (37.0-53.0); Hemoglobin 12.4 g/dL (13.5-17.5); Mean Corpuscular HGB 31.2 pg (26.0-34.0); Mean Corpuscular HGB Conc 33.3 g/dL (31.5-36.5); Mean Corpuscular Volume 94 fL (80-100); Mean Platelet Volume 9.6 fL (9.1-12.4); Platelet Count 178 K/mm3 (150-400); RDW Coefficient Variation 13.1 % (11.7-14.2); RDW Standard Deviation 44.8 fL (35.1-46.3); Red Blood Cell Count 3.98 M/mm3 (4.30-5.90); White Blood Cell Count 7.91 K/mm3 (4.00-11.30)
[2021-09-02 08:41] LABS: IMMATURE GRAN ABSOLUTE AUTO 0.06 K/mm3 (0.00-0.10); IMMATURE GRAN PERCENT AUTO 1 % (0-1); LYMPHOCYTES PERCENT AUTO 20 % (21-46); MONOCYTES ABSOLUTE AUTO 0.52 K/mm3 (0.16-1.47); MONOCYTES PERCENT AUTO 7 % (4-13); NEUTROPHILS PERCENT AUTO 72 % (41-73)
[2021-09-02 09:05] LABS: Albumin, Blood 2.7 g/dL (3.4-5.0); Albumin/Globulin Ratio 0.7 (0.8-1.8); Bilirubin, Total 1.4 mg/dL (0.1-1.0); Bun/Creatinine Ratio 17.5 (12.0-20.0); Calcium, Blood 8.8 mg/dL (8.5-10.1); Creatinine, Blood 1.03 mg/dL (0.60-1.20); Globulin, Blood 3.9 g/dL (2.2-4.0); Total Protein, Blood 6.6 g/dL (6.4-8.2)
[2021-09-02] MEDS ORDERED: CLOT10 MT (12:07)
[2021-09-02] MEDS ORDERED: MELO7.5 PO (12:08)
--- NOTE | 2021-09-02 15:09 | NUR ---
DISCHARGE INSTRUCTIONS, FOLLOWUP, AND MEDICATIONS GIVEN TO PT. PT VOICED COMPLETE UNDERSTANDING AND HAS NO QUESTIONS AT THIS TIME. IV REMOVED WITH CATHETER TIP INTACT. WILL CONTINUE TO MONITOR UNTIL PTS RIDE ARRIVES.
[2021-09-02 16:07] LABS: ANTI-CENTROMERE B ANTIBODIES <0.2 AI (0.0-0.9); ANTI-DNA (DS) AB QN 1 IU/mL (0-9); ANTI-JO-1 <0.2 AI (0.0-0.9); ANTICHROMATIN ANTIBODIES <0.2 AI (0.0-0.9); ANTISCLERODERMA-70 ANTIBODIES <0.2 AI (0.0-0.9); RNP ANTIBODIES 1.7 AI (0.0-0.9); SJOGREN'S ANTI-SS-A <0.2 AI (0.0-0.9); SJOGREN'S ANTI-SS-B <0.2 AI (0.0-0.9); SMITH ANTIBODIES <0.2 AI (0.0-0.9)
== END 2021-09-02 15:47 | disposition home health service (06) | DRG 853 ==
LOC: ER 00:08 → MEDS 05:49 → ERHOLD 05:49 → MEDS 13:50
PROVIDERS: Family Medicine; Internal Medicine; Student in an Organized Health Care Education/Training Program; Surgery; ADMIT Internal Medicine
PROC: 3E03329 Introduction of Other Anti-infective into Peripheral Vein, Percutaneous Approach (ICD-10-PCS; 2021-08-30)
PROC: BF121ZZ Fluoroscopy of Gallbladder using Low Osmolar Contrast (ICD-10-PCS; 2021-09-01)
PROC: 0FT44ZZ Resection of Gallbladder, Percutaneous Endoscopic Approach (ICD-10-PCS; principal; 2021-09-01 12:00)
DX: A41.81 Sepsis due to Enterococcus (principal); G93.41 Metabolic encephalopathy; B17.9 Acute viral hepatitis, unspecified; K80.12 Calculus of gallbladder with acute and chronic cholecystitis without obstruction; E87.2 Acidosis; I69.354 Hemiplegia and hemiparesis following cerebral infarction affecting left non-dominant side; Z20.822 Contact with and (suspected) exposure to COVID-19; E88.09 Other disorders of plasma-protein metabolism, not elsewhere classified; D63.8 Anemia in other chronic diseases classified elsewhere; N40.0 Benign prostatic hyperplasia without lower urinary tract symptoms; I10 Essential (primary) hypertension; N28.89 Other specified disorders of kidney and ureter; F15.90 Other stimulant use, unspecified, uncomplicated; K72.90 Hepatic failure, unspecified without coma; Z98.890 Other specified postprocedural states; Z79.02 Long term (current) use of antithrombotics/antiplatelets; Z79.899 Other long term (current) drug therapy
CPT/HCPCS: 36415; 71045; 74300; 76705; 78226; 80053; 80074; 81001; 82140; 83516; 83605; 83690; 83880; 84484; 85025; 85610; 86038; 86225; 86235; 87040; 87077; 87086; 87186; 87389; 88304; 93005; 93010; 94762; 96361; 96372; 96374; 96375; 99285-25; A9270; A9537; C1729; G0480; J0696; J1100; J1650; J1885; J2060; J2250; J2405; J2704; J2710; J2795; J3010; J7030; J7120

== ENCOUNTER 2022-01-15 10:21 | Inpatient (IN) | payer MEDICARE, OTHER ==
[~2022-01-15] VITALS: Ht 185.4 cm; Wt 113.9 kg
[~2022-01-15 10:21] MED LIST changes: +CLOT10 MT; +DOCUZEN 8.6-501 EACH PO; +FINA5 PO; +SERT50 PO; +TRAZ50 PO; +Voltaren100 GM TOP
[2022-01-15 11:06] LABS: Source, Urine Clean Catch
[2022-01-15 11:13] LABS: Bilirubin, Urine Neg (Neg); Blood, Urine 1+ (Neg); Glucose Qualitative, Urine Neg (Neg); Ketones, Urine Neg (Neg); Leukocyte Esterase, Urine Neg (Neg); Nitrite, Urine Neg (Neg); Protein, Urine 2+ (Neg); Specific Gravity, Urine 1.015 (1.003-1.022); Urobilinogen, Urine 2+ (Normal)
[2022-01-15 11:23] LABS: Amorphous Light (0-Heavy); Appearance, Urine Hazy (Clear); Bacteria Few /hpf; Color, Urine Yellow (P-Yellow); Squamous Epithelial Cells Few /hpf (Few); White Blood Cells, Urine 0-2 /hpf (0-5)
[2022-01-15 11:26] LABS: BASOPHILS ABSOLUTE AUTO 0.06 K/mm3 (0.00-0.23); BASOPHILS PERCENT AUTO 0 % (0-2); EOSINOPHILS PERCENT AUTO 0 % (0-6); Hematocrit 34.9 % (37.0-53.0); Hemoglobin 12.2 g/dL (13.5-17.5); IMMATURE GRAN ABSOLUTE AUTO 0.22 K/mm3 (0.00-0.10); IMMATURE GRAN PERCENT AUTO 1 % (0-1); LYMPHOCYTES ABSOLUTE AUTO 1.18 K/mm3 (0.84-5.20); LYMPHOCYTES PERCENT AUTO 5 % (21-46); MONOCYTES ABSOLUTE AUTO 1.52 K/mm3 (0.16-1.47); MONOCYTES PERCENT AUTO 7 % (4-13); Mean Corpuscular HGB 31.9 pg (26.0-34.0); Mean Corpuscular Volume 91 fL (80-100); Mean Platelet Volume 9.3 fL (9.1-12.4); NEUTROPHILS ABSOLUTE AUTO 19.23 K/mm3 (1.96-9.15); NEUTROPHILS PERCENT AUTO 87 % (41-73); Platelet Count 236 K/mm3 (150-400); RDW Coefficient Variation 12.6 % (11.7-14.2); RDW Standard Deviation 42.1 fL (35.1-46.3); Red Blood Cell Count 3.83 M/mm3 (4.30-5.90); White Blood Cell Count 22.21 K/mm3 (4.00-11.30)
[2022-01-15 11:41] LABS: Bun/Creatinine Ratio 22.3 (12.0-20.0); Calcium, Blood 8.3 mg/dL (8.5-10.1); Creatinine, Blood 2.11 mg/dL (0.60-1.20); Potassium, Blood 3.5 mmol/L (3.5-5.5)
[2022-01-15 12:02] LABS: Influenza A, PCR NEGATIVE (NEGATIVE); Influenza B, PCR NEGATIVE (NEGATIVE); Resp Syncytial Virus, PCR NEGATIVE (NEGATIVE); SARS-Cov-2 (COVID-19) PCR, MMC NEGATIVE (NEGATIVE)
[2022-01-15 13:37] LABS: Albumin, Blood 2.3 g/dL (3.4-5.0); Albumin/Globulin Ratio 0.6 (0.8-1.8); Bilirubin, Direct 0.9 mg/dL (0.0-0.3); Bilirubin, Indirect 0.4 mg/dL (0.1-0.7); Bilirubin, Total 1.3 mg/dL (0.1-1.0); Magnesium, Blood 2.3 mg/dL (1.6-2.4); Total Protein, Blood 6.3 g/dL (6.4-8.2)
[2022-01-15 18:00] LABS: Triglycerides 68 mg/dL (30-160)
--- NOTE | 2022-01-15 20:24 | NUR ---
PATIENT TRANSFERRED FROM ED TO ROOM 343 AT APPROXIMATELY 1915. OCCASIONAL NONSENSICAL SPEECH. PATIENT AUDIBLY GRUNTING IN PAIN BUT REPORTS INTENSITY OF 2/10 WHEN PROMPTED. HX OF CVA WITH RIGHT SIDED WEAKNESS, HTN, BPH. TINNING MACHINE SET UP OPERATOR 01/10. PHONE NUMBER OF CAREGIVER IS [phone]. ADMIT DX OF PANCREATITIS. IV IN LEFT AC, ROOM AIR. USES URINAL IN BED. CALL LIGHT LEFT WITHIN REACH, WILL COMPLETE ADMIT PROCESS PROMPTLY.
[2022-01-15] MEDS ORDERED: PRAZ5 PO (20:49)
[2022-01-15] MEDS ORDERED: FINA5 PO (20:50)
[2022-01-15] MEDS ORDERED: ZOLOFT50 MG PO (20:50)
--- NOTE | 2022-01-16 04:43 | NUR ---
PATIENT WAS ADMITTED NOT LONG AFTER SHIFT CHANGE. PATIENT HAS BEEN AOX1-3 AT VARIOUS TIMES THROUGHOUT SHIFT. WOKE UP CONFUSED IN THE NIGHT AND RIPPED OUT IV IN LEFT AC. NEW IV INSERTED INTO LEFT FOREARM. IV FLUIDS RUNNING AT 150 ML/HR. PATIENT REQUIRES FREQUENT ASSISTANCE WITH URINAL DUE TO HX OF BPH. EDUCATED ON NEED FOR NPO STATUS. CALL LIGHT LEFT WITHIN REACH.
[2022-01-16 05:28] LABS: BASOPHILS ABSOLUTE AUTO 0.06 K/mm3 (0.00-0.23); BASOPHILS PERCENT AUTO 0 % (0-2); EOSINOPHILS PERCENT AUTO 0 % (0-6); Hematocrit 34.8 % (37.0-53.0); Hemoglobin 11.9 g/dL (13.5-17.5); IMMATURE GRAN ABSOLUTE AUTO 0.51 K/mm3 (0.00-0.10); IMMATURE GRAN PERCENT AUTO 2 % (0-1); LYMPHOCYTES ABSOLUTE AUTO 1.13 K/mm3 (0.84-5.20); LYMPHOCYTES PERCENT AUTO 4 % (21-46); MONOCYTES PERCENT AUTO 6 % (4-13); Mean Corpuscular HGB 31.6 pg (26.0-34.0); Mean Corpuscular HGB Conc 34.2 g/dL (31.5-36.5); Mean Corpuscular Volume 92 fL (80-100); Mean Platelet Volume 9.5 fL (9.1-12.4); NEUTROPHILS ABSOLUTE AUTO 24.29 K/mm3 (1.96-9.15); NEUTROPHILS PERCENT AUTO 88 % (41-73); Platelet Count 227 K/mm3 (150-400); RDW Coefficient Variation 12.6 % (11.7-14.2); Red Blood Cell Count 3.77 M/mm3 (4.30-5.90); White Blood Cell Count 27.49 K/mm3 (4.00-11.30)
--- NOTE | 2022-01-16 06:07 | NUR ---
RAPID RESPONSE TEAM CALLED. PATIENT COMPLAINED OF BEING COLD AND SHOWED OXYGEN SATURATION IN LOW 80S ALONG WITH TACHYCARDIA. CHARGE NURSE NOTIFIED. ALL INCLUDED ORDERS IN CHART. WILL CONTINUE TO TREAT AND OXYGENATE PATIENT AT 4 LITERS PER MINUTE VIA NC.
[2022-01-16 06:14] LABS: Alanine Aminotransfer (ALT/SGP 52 U/L (12-78); Albumin, Blood 2.2 g/dL (3.4-5.0); Albumin/Globulin Ratio 0.6 (0.8-1.8); Alk Phos 233 U/L (50-136); Anion Gap 11 mmol/L (6-16); Aspartate Aminotrans (AST/SGOT 57 U/L (12-37); Bilirubin, Total 1.3 mg/dL (0.1-1.0); Blood Urea Nitrogen 40 mg/dL (8-24); Bun/Creatinine Ratio 24.7 (12.0-20.0); CO2, Blood 23 mmol/L (21-32); Calcium, Blood 8.6 mg/dL (8.5-10.1); Chloride, Blood 99 mmol/L (98-108); Cholesterol 54 mg/dL (50-200); Creatinine, Blood 1.62 mg/dL (0.60-1.20); Globulin, Blood 3.7 g/dL (2.2-4.0); Glomerular Filtration Rate 47 (60-); Glucose, Blood 105 mg/dL (70-99); HDL Cholesterol 27 mg/dL (>39); LDL/HDL RATIO 0.5; Low Density Lipoprotein Chol 13 mg/dL (0-110); Magnesium, Blood 2.2 mg/dL (1.6-2.4); Sodium, Blood 133 mmol/L (136-145); Total Protein, Blood 5.9 g/dL (6.4-8.2); Triglycerides 68 mg/dL (30-160); Very Low Density Lipoprot Chol 13 mg/dL (6-32)
--- NOTE | 2022-01-16 06:52 | NUR ---
CALLED HOSPITALIST INFORMED HER OF RESULTS OF [facility] LAB. NO NEW ORDERS.
--- NOTE | 2022-01-16 18:22 | NUR ---
SHIFT SUMMARY NO ACUTE CHANGES DURING SHIFT. PT ALERT AND ORIENTED 2-3, DISORIENTED AT TIMES. PT CALLS APPROPRIATELY. PT SEEN BY SPEECH THERAPY, THICKENED LIQUIDS TOLERATED. PT REMAINS ON RA. MEDICATED WITH PRN PAIN MEDS X 1. WILL CONTINUE TO MONITOR. CALL LIGHT WITHIN REACH.
--- NOTE | 2022-01-17 05:39 | NUR ---
SHIFT SUMMARY 66 YR M ADMITTED ON 01/15/22 FOR PANCREATITIS. FULL CODE. NO ACUTE CHANGES THIS SHIFT. PT'S SPEECH IS SLURRED ENOUGH TO MAKE IT DIFFICULT TO UNDERSTAND HIM, BUT HE LETS HIS NEEDS BE KNOWN. HE IS CURRENTLY ON 4L NC AND SATS ARE IN THE MID 90'S. HE CALLS OUT IN HIS SLEEP AND HIS SPEECH IS SLURRED MAKING IT HARD TO UNDERSTAND HIM BUT HE IS ABLE TO MAKE HIS NEEDS KNOWN.
[2022-01-17 05:57] LABS: Hemoglobin 11.2 g/dL (13.5-17.5); Mean Corpuscular HGB 31.1 pg (26.0-34.0); Mean Corpuscular HGB Conc 32.9 g/dL (31.5-36.5); Mean Corpuscular Volume 94 fL (80-100); Mean Platelet Volume 9.7 fL (9.1-12.4); Platelet Count 220 K/mm3 (150-400); RDW Coefficient Variation 12.8 % (11.7-14.2); RDW Standard Deviation 44.4 fL (35.1-46.3); White Blood Cell Count 19.54 K/mm3 (4.00-11.30)
[2022-01-17 06:23] LABS: Albumin/Globulin Ratio 0.6 (0.8-1.8); Bilirubin, Total 1.5 mg/dL (0.1-1.0); Bun/Creatinine Ratio 28.8 (12.0-20.0); Calcium, Blood 8.1 mg/dL (8.5-10.1); Creatinine, Blood 1.25 mg/dL (0.60-1.20); Globulin, Blood 3.5 g/dL (2.2-4.0); Potassium, Blood 4.3 mmol/L (3.5-5.5); Total Protein, Blood 5.5 g/dL (6.4-8.2)
--- NOTE | 2022-01-17 17:19 | NUR ---
PATIENT IS ALERT AND ORIENTED TO SELF, FAMILY AND PLACE. HE WAS ABLE TO STATE THE MONTH BUT DIDNT KNOW THE DAY. PATIENT DOES NOT KNOW WHAT BROUGHT HIM TO THE HOSPITAL. SPEECH THERAPY ASSESSED THE PATIENT THIS AM AND KEPT HIM ON NECTAR THICK LIQUIDS EVEN THOUGH THE PATIENT WANTS THIN. PATIENT IS TOLERATING PILLS WITH APPLESAUCE AND NECTAR THICK LIQUIDS WITHOUT COUGHING THIS SHIFT. THE PATIENT'S S/O WAS AT THE BEDSIDE TODAY AND SPOKE WITH DR. MENDOZA AND PHYSICAL THERAPY. THE PATIENT WAS ABLE TO SIT ON THE EOB WITH PT ONLY FOR A FEW SECONDS BEFORE HE BEGAN TO LEAN TO ONE SIDE AND THEN PUT HIMSELF BACK TO LAYING DOWN. HE C/O DIZZINESS AT THIS TIME PER PT. THE PATIENT WAS GIVEN A FULL BEDBATH THIS SHIFT. SUPPOSITORY GIVEN AND THE PATIENT DID HAVE A LARGE PASTY, BROWN BM THIS AFTERNOON. WILL CONTINUE TO MONITOR
[2022-01-18 05:14] LABS: Hematocrit 32.9 % (37.0-53.0); Hemoglobin 11.1 g/dL (13.5-17.5); Mean Corpuscular HGB 31.8 pg (26.0-34.0); Mean Corpuscular HGB Conc 33.7 g/dL (31.5-36.5); Mean Corpuscular Volume 94 fL (80-100); Mean Platelet Volume 9.6 fL (9.1-12.4); Platelet Count 217 K/mm3 (150-400); RDW Standard Deviation 45.1 fL (35.1-46.3); Red Blood Cell Count 3.49 M/mm3 (4.30-5.90); White Blood Cell Count 16.03 K/mm3 (4.00-11.30)
[2022-01-18 05:39] LABS: Albumin, Blood 1.9 g/dL (3.4-5.0); Albumin/Globulin Ratio 0.5 (0.8-1.8); Bilirubin, Total 1.6 mg/dL (0.1-1.0); Calcium, Blood 8.5 mg/dL (8.5-10.1); Creatinine, Blood 1.07 mg/dL (0.60-1.20); Globulin, Blood 3.7 g/dL (2.2-4.0); Potassium, Blood 4.1 mmol/L (3.5-5.5); Total Protein, Blood 5.6 g/dL (6.4-8.2)
--- NOTE | 2022-01-18 06:35 | NUR ---
SHIFT SUMMARY 66 YR M ADMITTED ON 01/15/22 FOR PANCREATITIS. FULL CODE. PT C/O BEING COLD AND THIRSTY MULTIPLE TIMES THIS SHIFT. AT APPROX 0400 PT BEGAN TO YELL LOUDLY THAT HE WAS COLD OVER AND OVER. HE WAS GIVEN WARM BLANKETS AND TUCKED IN BUT HE BEAGAN TO SHIVER TO THE POINT OF NEAR TREMORS. HE BECAME DIAPHORETIC AND STATED THAT HE WAS HAVING TROUBLE BREATHING. VITALS WERE DONE AT THAT TIME AND HIS BP WAS HIGH AND PULSE WAS 129. I ASKED CHARGE NURSE TO COME TO PT'S ROOM AND HE WAS IN THE ROOM WHEN THE PT'S HR JUMPED TO 222. AT THAT POINT IT WAS DECIDED THAT A RAPID RESPONSE WAS CALLED. PT WAS ULTIMATELY GIVEN 2 MG MORPHINE AND TROPONIN LABS WERE DRAWN. TROPONIN LEVEL WAS NORMAL. THE MORPHINE CALMED THE PT DOWN AND VITALS EVENTUALLY RETURNED TO NORMAL. SHORTLY AFTER THAT THIS NURSE WENT IN TO CHECK ON PT AND DISCOVERED THAT HE HAD PULLED THE LINE ON HIS SALINE BAG AND RIPPED THE LINE IN HALF AND WAS DRINKING THE SALINE FROM THE LINE. HE ALSO CONTINUALLY CALLS OUT FOR HELP INSTEAD OF USING HIS CALL LIGHT BECAUSE HE WANTS A DRINK OF WATER. THIS NURSE EXPLAINED TO HIM THAT HE SHOULD NOT YELL OUT FOR HELP UNLESS IT IS AN EMERGENCY AND HIS REACTION WAS TO LOOK AT THE NURSE AND YELL "HELP".
--- NOTE | 2022-01-18 08:33 | NUR ---
CALL PLACED TO SPOUSE TRANG AND NOTIFIED HER OF THE TRANSFER, SHE WILL BE COMING IN, NOTIFIED ICU [facility]A KAUP[facility]A MAORI
--- NOTE | 2022-01-18 08:41 | NUR ---
AT 0730 THE PATIENT ASKED FOR A DRINK OF NECTAR THICK WATER, HE WAS BOOSTED AND SAT UP IN BED AND SPOON FED 118 ML. THE PATIENT'S ATTENDS WERE SOILED WITH URINE AND HIS ATTENDS WERE CHANGED. SUCTION WAS SET UP AT THE BEDSIDE AND THE PATIENT WAS SUCTIONING HIMSELF NEEDED. THE PATIENT APPEARD DIAPHORETIC WHICH WASNT ABNORMAL BUT A FAN WAS PLACED IN FRONT OF HIM. AT THIS TIME, HE BECAME TACHYPNEIC WITH RESPIRATIONS AT 30/ MIN. ON 5L O2 VIA NC WITH O2 SAT OF 92%. HE APPEARED ANXIOUS. RN STOOD NEXT TO HIM AND TRIED TALKING HIM THROUGH SLOWING HIS BREATHING AND BREATHING IN THROUGH HIS NOSE AND OUT HIS MOUTH, THIS DID NOT HELP. HIS O2 SATURATION DROPPED TO 69% ON 5L O2 VIA NC. HIS OXYGEN WAS INCREASED TO 15L O2 VIA NC AND OPHTHALMIC MEDICAL TECHNOLOGIST WAS NOTIFIED AND RT WAS CALLED TO THE ROOM. OPHTHALMIC MEDICAL TECHNOLOGIST CALLED DR. MENDOZA AND EXPLAINED THE SITUATION AND ORDERS FOR ATIVAN, ALBUTERAL AND LASIX WERE GIVEN. RT GAVE A BREATHING TREATMENT, LISTENED TO LS AND DETEREMINED THE PATIENT WAS HYPERVENTILATING. EVENTUALLY A BIPAP WAS PLACED ON THE PATIENT. MEDS GIVEN PER EMAR. PCU OPHTHALMIC MEDICAL TECHNOLOGIST CAME TO THE ROOM TO ASSESS THE PATIENT AND DETERMINED THE PATIENT SHOULD BE TRANSFERRED TO ICU. DR. MENDOZA CAME TO THE ROOM TO ASSESS THE PATIENT. REPORT WAS GIVEN TO FIBRE COMPOSITE TECHNICIAN. PATIENT WAS TRANSFERRED TO ICU 12 AT 0830. PATIENT WAS NOTIFIED BY PHONE.
[2022-01-18 09:12] LABS: Base Excess Venous -2.8 mmol/L; Bicarbonate Venous 22.3 mmol/L (24.0-30.0); PCO2 Venous 35.9 mmHg (38-42)
[2022-01-18 09:23] LABS: Source, Urine Foley catheter
[2022-01-18 09:27] LABS: Hematocrit 33.1 % (37.0-53.0); Hemoglobin 11.1 g/dL (13.5-17.5); Mean Corpuscular HGB Conc 33.5 g/dL (31.5-36.5); Mean Corpuscular Volume 95 fL (80-100); Mean Platelet Volume 9.7 fL (9.1-12.4); Platelet Count 241 K/mm3 (150-400); RDW Standard Deviation 45.9 fL (35.1-46.3); Red Blood Cell Count 3.47 M/mm3 (4.30-5.90); White Blood Cell Count 20.22 K/mm3 (4.00-11.30)
[2022-01-18 09:31] LABS: Bilirubin, Urine Neg (Neg); Blood, Urine Neg (Neg); Glucose Qualitative, Urine Neg (Neg); Ketones, Urine Neg (Neg); Leukocyte Esterase, Urine Neg (Neg); Nitrite, Urine Neg (Neg); Protein, Urine 2+ (Neg); Urobilinogen, Urine 2+ (Normal)
[2022-01-18 09:32] LABS: Albumin/Globulin Ratio 0.6 (0.8-1.8); Bilirubin, Total 1.7 mg/dL (0.1-1.0); Bun/Creatinine Ratio 24.4 (12.0-20.0); Calcium, Blood 8.2 mg/dL (8.5-10.1); Creatinine, Blood 1.27 mg/dL (0.60-1.20); Globulin, Blood 3.6 g/dL (2.2-4.0); Potassium, Blood 4.3 mmol/L (3.5-5.5); Total Protein, Blood 5.6 g/dL (6.4-8.2)
[2022-01-18 10:04] LABS: BAND PERCENT MAN 21 % (0-8); BASOPHILS PERCENT MAN 0 % (0-2); EOSINOPHILS PERCENT MAN 0 % (0-6); LYMPHOCYTES PERCENT MAN 3 % (21-46); MONOCYTES PERCENT MAN 0 % (4-13); NEUTROPHILS ABSOLUTE MAN 19.61 K/mm3 (1.96-9.15); SEG NEUTROPHILS PERCENT MAN 76 % (41-73); TOTAL CELLS COUNTED 100
[2022-01-18 10:11] LABS: White Blood Cells, Urine 0-2 /hpf (0-5)
[2022-01-18 10:12] LABS: Bacteria Many /hpf; Squamous Epithelial Cells Mod /hpf (Few)
[2022-01-18 10:13] LABS: Mucus Light (0-Heavy)
[2022-01-18 10:14] LABS: Amorphous Light (0-Heavy); Transitional Epithelial Cells Few /hpf (0-Rare)
[2022-01-18 11:55] LABS: Appearance, Urine Hazy (Clear); Color, Urine Yellow (P-Yellow)
--- NOTE | 2022-01-18 12:29 | NUR ---
Assumed care of pt at 0821 from medical floor nurse. Patient transferred to ICU after notable decline in pt's condition. When pt arrived, he was wearing V60 BiPAP 12/8 and 60% FiO2. SpO2 90% or greater. RR 50-56. Tidal volumes 400-450 mL. Pt alert, able to answer questions however speech was difficult to understand due to presence of mask. Additional he reportedly has dysarthria as a result of previous CVA. ST per monitor, BP stable. Pt received portable XR of chest and abdomen. Dr Butcher in unit states she is consulting Dillan Obrien and Reynaldo. Dr Obrien in to see patient, orders PICC line after pt has CT that was ordered by surgeon. Daniels catheter placed by student nurse, Gaby, with instructor Marissa LEVI guidance. Upon receiving CT results, plan is to transfer pt to another facility. Pt's ex-spouse who currently lives with him and his caregiver is at bedside and has been updated.
--- NOTE | 2022-01-18 15:06 | NUR ---
Pt departed from ICU 12 with REACH for transfer to higher level of care at [facility], via helicopter. Pt assigned to [facility] Bed 30. Report called to AMITA Lin. Pt's next of kin, Vilma, departed with patient. At time of departure, pt on 2 mcg/min levophed through PICC line. [address] per monitor.
== END 2022-01-18 14:50 | disposition short-term general hospital (02) | DRG 438 ==
LOC: ER 10:21 → ERHOLD 16:05 → ICUW 16:05 → MEDS 19:46 → ICUW 01-18 08:32
PROVIDERS: Student in an Organized Health Care Education/Training Program; ADMIT Internal Medicine
PROC: 3E02340 Introduction of Influenza Vaccine into Muscle, Percutaneous Approach (ICD-10-PCS; 2022-01-15)
PROC: 3E033XZ Introduction of Vasopressor into Peripheral Vein, Percutaneous Approach (ICD-10-PCS; principal; 2022-01-18)
PROC: 5A09357 Assistance with Respiratory Ventilation, Less than 24 Consecutive Hours, Continuous Positive Airway Pressure (ICD-10-PCS; 2022-01-18)
DX: K85.90 Acute pancreatitis without necrosis or infection, unspecified (principal); N17.0 Acute kidney failure with tubular necrosis; K56.0 Paralytic ileus; R65.10 Systemic inflammatory response syndrome (SIRS) of non-infectious origin without acute organ dysfunction; I69.351 Hemiplegia and hemiparesis following cerebral infarction affecting right dominant side; N40.0 Benign prostatic hyperplasia without lower urinary tract symptoms; R94.5 Abnormal results of liver function studies; I10 Essential (primary) hypertension; N28.89 Other specified disorders of kidney and ureter; E86.0 Dehydration; K80.20 Calculus of gallbladder without cholecystitis without obstruction; E66.9 Obesity, unspecified; E78.00 Pure hypercholesterolemia, unspecified; F15.10 Other stimulant abuse, uncomplicated; Z20.822 Contact with and (suspected) exposure to COVID-19; K21.9 Gastro-esophageal reflux disease without esophagitis; R07.2 Precordial pain; Z96.651 Presence of right artificial knee joint; Z68.34 Body mass index [BMI] 34.0-34.9, adult; Z79.82 Long term (current) use of aspirin; Z79.899 Other long term (current) drug therapy; Z79.811 Long term (current) use of aromatase inhibitors; Z79.02 Long term (current) use of antithrombotics/antiplatelets; Z98.890 Other specified postprocedural states; Z87.891 Personal history of nicotine dependence; Z90.49 Acquired absence of other specified parts of digestive tract; Z98.49 Cataract extraction status, unspecified eye; I69.322 Dysarthria following cerebral infarction; Z23 Encounter for immunization
CPT/HCPCS: 0241U; 36415; 36569; 51702; 71045; 74018; 74177; 80048; 80053; 80061; 80076; 81001; 82803; 82947; 83605; 83690; 83735; 84478; 84484; 85025; 85027; 85379; 87040; 87086; 90686; 92526; 92610; 93005; 93010; 94640; 94660; 94664; 94760; 97162; 97530; A9270; C1751; J0696; J1644; J1940; J2060; J2185; J2270; J2405; J7030; J7060; J7120; Q9967

== ENCOUNTER → 2023-03-26 | Outpatient (CLI) | payer MEDICARE, OTHER ==
[~2023-03-26] MED LIST changes: +ZOLOFT50 MG PO
[2023-03-28 07:13] LABS: POTASSIUM, SERUM 4.7 mmol/L (3.5-5.2)
== END ==
LOC: LAB SHORT 19:01 → LAB 19:01
PROVIDERS: Nurse Practitioner Family
DX: K85.91 Acute pancreatitis with uninfected necrosis, unspecified (principal); I10 Essential (primary) hypertension; E55.9 Vitamin D deficiency, unspecified
CPT/HCPCS: 80048; 82306